=== PATIENT | female | born 1995 | race Caucasian/White ===

== ENCOUNTER → 2018-08-18 | Outpatient (CLI) | payer BC, OTHER ==
[2018-08-17 11:00] VITALS: BP 109/56
[~2018-08-18] MED LIST: DOCU-109 PO; HYDROCODONE-IB1 EAC3 PO; PANT20TA2 PO
[2018-08-18 16:24] LABS: BASO # 0.2 x10^3/uL (0.0-0.2); BASO % 1 % (0-3); EOS # 0.6 x10^3/uL (0.0-0.7); EOS % 3 % (0-3); HEMATOCRIT 35.3 % (36.0-47.0); HEMOGLOBIN 11.7 g/dL (12.0-15.5); LYMPH # 2.1 x10^3/uL (1.0-4.8); LYMPH % 10 % (24-48); MEAN CORPUSCULAR HEMOGLOBIN 28 pg (25-35); MEAN CORPUSCULAR HGB CONC 33 g/dL (31-37); MEAN CORPUSCULAR VOLUME 84 fL (79-100); MONO # 2.5 x10^3/uL (0.0-1.1); MONO % 12 % (0-9); NEUT % 74 % (31-73); RED BLOOD COUNT 4.22 x10^6/uL (3.50-5.40); RED CELL DISTRIBUTION WIDTH 15.3 % (11.5-14.5); WHITE BLOOD COUNT 20.5 x10^3/uL (4.0-11.0)
[2018-08-18 16:31] LABS: PLATELET COUNT 1265 x10^3/uL (140-400)
[2018-08-18 17:12] LABS: % EOS 1 % (0-5); % LYMPHS 6 % (24-48); % MONOS 10 % (0-10); % SEGS 83 % (35-66); PLT ESTIMATE INCREASED (ADEQUATE)
[2018-08-18 17:13] LABS: PLATELET CLUMP PRESENT; TOXIC GRANULATION SLIGHT
== END | disposition home or self-care (01) ==
LOC: LAB 16:06
PROVIDERS: ATTEND Family Medicine
DX: D47.3 Essential (hemorrhagic) thrombocythemia (principal)
CPT/HCPCS: 36415; 85007; 85025

== ENCOUNTER 2019-05-26 19:44 | Emergency (ER) | payer BC ==
[~2019-05-26] VITALS: Ht 175.3 cm; Wt 68.0 kg
[2019-05-26 20:10] LABS: BASO # 0.1 x10^3/uL (0.0-0.2); BASO % 1 % (0-3); EOS # 0.2 x10^3/uL (0.0-0.7); EOS % 2 % (0-3); LYMPH # 4.6 x10^3/uL (1.0-4.8); LYMPH % 33 % (24-48); MEAN CORPUSCULAR HEMOGLOBIN 29 pg (25-35); MEAN CORPUSCULAR HGB CONC 33 g/dL (31-37); MEAN CORPUSCULAR VOLUME 89 fL (79-100); MONO % 7 % (0-9); NEUT # 7.8 x10^3/uL (1.8-7.7); NEUT % 57 % (31-73); PLATELET COUNT 421 x10^3/uL (140-400); RED BLOOD COUNT 4.49 x10^6/uL (3.50-5.40); RED CELL DISTRIBUTION WIDTH 13.9 % (11.5-14.5); WHITE BLOOD COUNT 13.9 x10^3/uL (4.0-11.0)
[2019-05-26 20:20] LABS: CREATININE 0.8 mg/dL (0.6-1.0); GFR 87.4; POTASSIUM 3.3 mmol/L (3.5-5.1)
[2019-05-26 20:25] LABS: ALBUMIN 3.6 g/dL (3.4-5.0); TOTAL BILIRUBIN 0.3 mg/dL (0.2-1.0); TOTAL PROTEIN 7.2 g/dL (6.4-8.2)
[2019-05-26] MEDS ORDERED: DEXAMETHASONE SOD PHOS 20 MG/5 ML VIAL. IV ONE (20:30)
[2019-05-26] MEDS ORDERED: KETOROLAC 30 MG/ML VIAL. IVP ONE (20:30)
[2019-05-26] MEDS ORDERED: IV NORMAL SALINE 1000ML BAG 1,000 ML IV SCH (20:30)
[2019-05-26 21:18] LABS: BILIRUBIN,URINE SMALL (NEG); CLARITY,URINE CLEAR; COLOR,URINE AMBER; NITRITE,URINE NEGATIVE (NEG); PH,URINE 5.5; PROTEIN,URINE NEGATIVE (NEG-TRACE)
[2019-05-26 21:22] LABS: BACTERIA,URINE FEW /HPF (0-FEW); SQUAMOUS EPITHELIAL CELL,UR MOD /LPF
[2019-05-26 21:23] LABS: RBC,URINE RARE /HPF (0-2)
[2019-05-26] MEDS ORDERED: TRAM50TA PO (21:45)
--- NOTE | 2019-05-26 21:45 | PHYS DOC ---
Past Medical History Past Medical History: Asthma Additional Past Medical Histor: GASTRIC BYPASS Past Surgical History: Cholecystectomy Additional Past Surgical Histo: gastric bypass Alcohol Use: None Drug Use: None Adult General Chief Complaint Chief Complaint: CHEST PAIN HPI HPI Patient is a 23-year-old female who presents with complaint of left-sided chest pain that started 4-5 days ago. Patient states the pain is sharp and stabbing in nature and states the pain is worsened with deep breathing and with movements. She states that she was seen by her primary care provider earlier this week for the same complaint and he did blood work and chest x-ray along with EKG and found nothing wrong. She states the pain is continuing and is actually worsening. She does indicate that she had one episode of nausea earlier in the day but states that she was unable to vomit. She attributes the nausea to history of gastric bypass.[] Review of Systems Review of Systems Constitutional: Denies fever or chills [] Respiratory: Denies cough or shortness of breath [] Cardiovascular: No additional information not addressed in HPI [] GI: Denies abdominal pain, vomiting or diarrhea [] Musculoskeletal: Admits to mid thoracic back pain [] Integument: Denies rash or skin lesions [] Neurologic: Denies headache, focal weakness or sensory changes [] All other systems were reviewed and found to be within normal limits, except as documented in this note. Current Medications Current Medications Current Medications Medications (Trade) Dose Ordered Sig/[facility] Start Time Stop Time Status Last Admin Dose Admin Dexamethasone Sodium Phosphate (Decadron) 10 mg 1X ONCE 05/26/19 20:30 05/26/19 20:31 DC 05/26/19 20:25 10 MG Ketorolac Tromethamine (Toradol 30mg Vial) 30 mg 1X ONCE 05/26/19 20:30 05/26/19 20:31 DC 05/26/19 20:24 30 MG Sodium Chloride 1,000 ml @ 1,000 mls/hr Q1H 05/26/19 20:30 05/26/19 21:29 DC 05/26/19 20:24 1,000 MLS/HR Allergies Allergies Allergies Coded Allergies Type Severity Reaction Last Updated Verified Penicillins Allergy Severe FACIAL SWELLING, ANGIOEDEMA 08/06/18 Yes Sulfa (Sulfonamide Antibiotics) Allergy Intermediate 08/05/18 Yes acetaminophen Allergy Intermediate 08/05/18 Yes oxycodone Allergy Intermediate 08/05/18 Yes adhesive Adverse Reaction Mild Rash, itching 08/16/18 Yes hydromorphone Adverse Reaction Mild 05/26/19 Yes Physical Exam Physical Exam Constitutional: Well developed, well nourished, no acute distress, non-toxic appearance. [] HENT: Normocephalic, atraumatic, bilateral external ears normal, oropharynx m oist, no oral exudates, nose normal. [] Eyes: PERRLA, EOMI, conjunctiva normal, no discharge. [] Neck: Normal range of motion, no tenderness, supple, no stridor. [] Cardiovascular: Regular rate and rhythm[] Lungs & Thorax: Bilateral breath sounds clear to auscultation [] Abdomen: Bowel sounds normal, soft, no tenderness. [] Skin: Warm, dry, no erythema, no rash. [] Extremities: No tenderness, no cyanosis, no clubbing, ROM intact, no edema. [] Neurologic: Alert and oriented X 3, no focal deficits noted. [] Current Patient Data Vital Signs Vital Signs Date Time Temp Pulse Resp B/P (MAP) Pulse Ox O2 Delivery O2 Flow Rate FiO2 05/26/19 21:52 76 14 104/62 (76) 99 05/26/19 19:56 98.1 Room Air 98.1 Lab Values Laboratory Tests Test 05/26/19 20:00 05/26/19 21:10 White Blood Count 13.9 x10^3/uL (4.0-11.0) H Red Blood Count 4.49 x10^6/uL (3.50-5.40) Hemoglobin 13.0 g/dL (12.0-15.5) Hematocrit 40.0 % (36.0-47.0) Mean Corpuscular Volume 89 fL (79-100) Mean Corpuscular Hemoglobin 29 pg (25-35) Mean Corpuscular Hemoglobin Concent 33 g/dL (31-37) Red Cell Distribution Width 13.9 % (11.5-14.5) Platelet Count 421 x10^3/uL (140-400) H Neutrophils (%) (Auto) 57 % (31-73) Lymphocytes (%) (Auto) 33 % (24-48) Monocytes (%) (Auto) 7 % (0-9) Eosinophils (%) (Auto) 2 % (0-3) Basophils (%) (Auto) 1 % (0-3) Neutrophils # (Auto) 7.8 x10^3/uL (1.8-7.7) H Lymphocytes # (Auto) 4.6 x10^3/uL (1.0-4.8) Monocytes # (Auto) 1.0 x10^3/uL (0.0-1.1) Eosinophils # (Auto) 0.2 x10^3/uL (0.0-0.7) Basophils # (Auto) 0.1 x10^3/uL (0.0-0.2) Sodium Level 142 mmol/L (136-145) Potassium Level 3.3 mmol/L (3.5-5.1) L Chloride Level 102 mmol/L (98-107) Carbon Dioxide Level 30 mmol/L (21-32) Anion Gap 10 (6-14) Blood Urea Nitrogen 15 mg/dL (7-20) Creatinine 0.8 mg/dL (0.6-1.0) Estimated GFR (Cockcroft-Gault) 87.4 BUN/Creatinine Ratio 19 (6-20) Glucose Level 92 mg/dL (70-99) Calcium Level 9.0 mg/dL (8.5-10.1) Magnesium Level 2.0 mg/dL (1.8-2.4) Total Bilirubin 0.3 mg/dL (0.2-1.0) Aspartate Amino Transferase (AST) 11 U/L (15-37) L Alanine Aminotransferase (ALT) 12 U/L (14-59) L Alkaline Phosphatase 85 U/L (46-116) Troponin I Quantitative < 0.017 ng/mL (0.000-0.055) AH-Zfz-P-Type Natriuretic Peptide 74 pg/mL (0-124) Total Protein 7.2 g/dL (6.4-8.2) Albumin 3.6 g/dL (3.4-5.0) Albumin/Globulin Ratio 1.0 (1.0-1.7) Urine Collection Type Unknown Urine Color Sandra Urine Clarity Clear Urine pH 5.5 Urine Specific [place] >=1.030 Urine Protein Negative mg/dL (NEG-TRACE) Urine Glucose (UA) Negative mg/dL (NEG) Urine Ketones (Stick) Trace mg/dL (NEG) Urine Blood Negative (NEG) Urine Nitrite Negative (NEG) Urine Bilirubin Small (NEG) Urine Urobilinogen Dipstick 1.0 mg/dL (0.2 mg/dL) Urine Leukocyte Esterase Negative (NEG) Urine RBC Rare /HPF (0-2) Urine WBC 5-10 /HPF (0-4) Urine Squamous Epithelial Cells Mod /LPF Urine Bacteria Few /HPF (0-FEW) Urine Mucus Marked /LPF POC Urine HCG, Qualitative Hcg negative (Negative) Laboratory Tests 05/26/19 20:00 Laboratory Tests 05/26/19 20:00 EKG EKG EKG demonstrates sinus rhythm with rate of 58.[] Radiology/Procedures Radiology/Procedures [] Impressions: Chest x-ray demonstrates no acute process. Course & Med Decision Making Course & Med Decision Making Pertinent Labs and Imaging studies reviewed. (See chart for details) [] Dragon Disclaimer Dragon Disclaimer This electronic medical record was generated, in whole or in part, using a voice recognition dictation system. Departure Departure Impression: Primary Impression: Costochondritis Disposition: 01 HOME, SELF-CARE Condition: STABLE Referrals: NO PCP (PCP) Patient Instructions: Costochondritis Scripts Tramadol Hcl (TRAMADOL HCL) 50 Mg Tablet 50 MG PO Q6HRS PRN for PAIN, #15 TAB Prov: CORTEZ HOBSON Jr. DO 05/26/19 CORTEZ HOBSON Jr. DO May 26, 2019 21:45
[2019-05-26 21:52] VITALS: BP 104/62
--- NOTE | 2019-05-26 22:51 | RAD ---
EXAM: AP View of the chest DATE: 05/26/2019 7:59 PM INDICATION: Chest wall pain COMPARISON: 08/15/2018 FINDINGS: The heart is not enlarged. Mediastinal and hilar contours are normal. No focal parenchymal airspace opacity. No pleural effusion or pneumothorax. IMPRESSION: 1. No radiographic evidence for acute cardiopulmonary process. Electronically signed by: Curly Sorto MD (05/26/2019 10:48 PM) [id number]
--- NOTE | 2019-05-27 14:32 | EKG ---
[facility] [address] [place] [address] Test Date: 2019-05-26 Test Time: 19:51:38 Pat Name: OLAF MUNOZ Department: Room: Gender: F [employer]: : 1995 Requested By: CORTEZ HOBSON Order Number: [id number] Reading MD: Measurements Intervals [place] Rate: 58 P: 32 [place]: 156 QRS: 46 QRSD: 88 T: 71 QT: 370 QTc: 363 Interpretive Statements SINUS RHYTHM INCOMPLETE RIGHT BUNDLE BRANCH BLOCK NO SPECIFIC ECG ABNORMALITIES RI6.01 No previous ECG available for comparison
== END 2019-05-26 22:20 | disposition home or self-care (01) ==
LOC: ER 19:44
DX: M94.0 Chondrocostal junction syndrome [Tietze] (principal); J45.909 Unspecified asthma, uncomplicated; M54.6 Pain in thoracic spine; Z98.84 Bariatric surgery status; Z90.49 Acquired absence of other specified parts of digestive tract; Z88.0 Allergy status to penicillin; Z88.2 Allergy status to sulfonamides; Z88.5 Allergy status to narcotic agent; Z88.6 Allergy status to analgesic agent; Z88.8 Allergy status to other drugs, medicaments and biological substances
CPT/HCPCS: 36415; 71045; 80053; 81001; 81025; 83735; 83880; 84484; 85025; 87086; 93005; 96374; 96375; 99285; J1100; J1885; J7030

== ENCOUNTER 2019-08-26 20:34 | Emergency (ER) | payer BC ==
[~2019-08-26] VITALS: Ht 175.3 cm; Wt 146.0 kg
[~2019-08-26 20:34] MED LIST changes: +TRAM50TA PO
[2019-08-26 21:32] LABS: BILIRUBIN,URINE SMALL (NEG); CLARITY,URINE CLEAR; NITRITE,URINE NEGATIVE (NEG); PROTEIN,URINE NEGATIVE (NEG-TRACE)
[2019-08-26 21:39] LABS: COLOR,URINE DK YELLOW
[2019-08-26 21:41] LABS: BACTERIA,URINE MANY /HPF (0-FEW); RBC,URINE 0 /HPF (0-2); SQUAMOUS EPITHELIAL CELL,UR MANY /LPF
[2019-08-26] MEDS ORDERED: IV NORMAL SALINE 1000ML BAG 1,000 ML IV ONE (21:45)
[2019-08-26 21:53] LABS: BASO # 0.1 x10^3/uL (0.0-0.2); BASO % 1 % (0-3); EOS # 0.1 x10^3/uL (0.0-0.7); EOS % 0 % (0-3); HEMATOCRIT 40.7 % (36.0-47.0); HEMOGLOBIN 13.3 g/dL (12.0-15.5); LYMPH # 3.3 x10^3/uL (1.0-4.8); LYMPH % 20 % (24-48); MEAN CORPUSCULAR HEMOGLOBIN 29 pg (25-35); MEAN CORPUSCULAR HGB CONC 33 g/dL (31-37); MEAN CORPUSCULAR VOLUME 89 fL (79-100); MONO # 0.8 x10^3/uL (0.0-1.1); MONO % 5 % (0-9); NEUT # 11.8 x10^3/uL (1.8-7.7); NEUT % 74 % (31-73); PLATELET COUNT 512 x10^3/uL (140-400); RED BLOOD COUNT 4.56 x10^6/uL (3.50-5.40); RED CELL DISTRIBUTION WIDTH 14.2 % (11.5-14.5)
[2019-08-26] MEDS ORDERED: FAMOTIDINE 20 MG/2 ML VIAL IVP ONE (22:00)
[2019-08-26] MEDS ORDERED: ONDANSETRON PF 4 MG/2 ML VIAL. IV ONE (22:00)
[2019-08-26 22:04] LABS: CALCIUM 9.4 mg/dL (8.5-10.1); CREATININE 0.8 mg/dL (0.6-1.0); GFR 86.7; POTASSIUM 3.6 mmol/L (3.5-5.1)
[2019-08-26 22:10] LABS: ALBUMIN 4.1 g/dL (3.4-5.0); ALBUMIN/GLOBULIN RATIO 1.1 (1.0-1.7); TOTAL BILIRUBIN 0.5 mg/dL (0.2-1.0); TOTAL PROTEIN 7.8 g/dL (6.4-8.2)
[2019-08-26] MEDS ORDERED: fentaNYL PF VIAL 100 MCG/2 ML VIAL IV ONE (22:30)
[2019-08-26] MEDS ORDERED: CONTRAST GIVEN. MC PRN (23:00)
[2019-08-26] MEDS ORDERED: IOHEXOL 300 MG/ML 100ML VIAL. IV ONE (23:00)
--- NOTE | 2019-08-26 23:26 | RAD ---
Exam: CT abdomen and pelvis with contrast INDICATION: Left upper abdominal pain TECHNIQUE: Sequential axial images through the abdomen and pelvis obtained following the administration of 75 mL of Omni 300 IV contrast. Sagittal and coronal reformatted images were reconstructed from the axial data and reviewed. Comparisons: None FINDINGS: Heart size is normal. No pericardial effusion. Visualized lung bases are clear. No pleural effusion. Liver,, pancreas and adrenals are unremarkable. Spleen and gallbladder are absent. Kidneys demonstrate symmetric enhancement. No perinephric inflammation or hydronephrosis. No renal or ureteral calculi are identified. Bladder is decompressed not well evaluated. Uterus is not enlarged. There is a 4.3 cm cystic lesion at the left adnexa. Trace free fluid. Large and small bowel are unremarkable. Postsurgical changes at the stomach are noted. No free intra-abdominal air. Abdominal aorta has a normal course and caliber. Abdominal vasculature is patent. No enlarged intra-abdominal lymph nodes are identified. No suspicious osseous lesions or acute fractures. IMPRESSION: 1. There is a 4.4 cm cystic lesion at the left adnexa, likely ovarian in etiology. This is incompletely characterized on CT. 2. Postsurgical changes at the stomach. 3. Trace free fluid is noted within the pelvis, which is nonspecific and may be physiological. Exposure: One or more of the following in the visualized dose reduction techniques were utilized for this examination: 1. Automated exposure control 2. Adjustment of the MA and/or KV according to patient size 3. Use of iterative of reconstructive technique Electronically signed by: Soo Antonio MD (08/26/2019 11:22 PM) [id number]
--- NOTE | 2019-08-26 23:29 | PHYS DOC ---
Past Medical History Past Medical History: Asthma Additional Past Medical Histor: GASTRIC BYPASS (ABDIRAHMAN CHO APRN) Past Surgical History: Cholecystectomy, Colectomy, Splenectomy Additional Past Surgical Histo: gastric bypass (ABDIRAHMAN CHO APRN) Smoking Status: Light Tobacco Smoker Alcohol Use: None Drug Use: None (ABDIRAHMAN CHO APRN) Attending Signature I have participated in the care of this patient and I have reviewed and agree with all pertinent clinical information above including history, exam, and recommendations. (LUTHER HARO MD) Adult General Chief Complaint Chief Complaint: ABDOMINAL PAIN HPI HPI Patient is a 24 year old female who presents to the emergency department with complaints of nausea, vomiting, and body aches that began today. Patient states she has vomited at least 8 or 9 times today she denies any diarrhea, fever, dysuria, hematuria, increased urinary frequency, cough, nasal congestion, runny nose, sore throat, headache, dizziness, or weakness. Patient denies any hematemesis. She complains of left upper abdominal pain. Patient states that the pain in her abdomen started about 2 weeks ago and has gradually gotten worse. She reports concern because of multiple abdominal surgeries including a gastric bypass, splenectomy, and cholecystectomy. She currently rates her discomfort a 5 out of 10 on the pain scale, she denies any alleviating factors. (ABDIRAHMAN CHO APRN) Review of Systems Review of Systems All other ROS is negative unless otherwise noted in HPI. (ABDIRAHMAN CHO APRN) Current Medications Current Medications Current Medications Medications (Trade) Dose Ordered Sig/René Start Time Stop Time Status Last Admin Dose Admin Famotidine (Pepcid Vial) 20 mg 1X ONCE 08/26/19 22:00 08/26/19 22:01 DC 08/26/19 22:01 20 MG Fentanyl Citrate (Fentanyl 2ml Vial) 50 mcg 1X ONCE 08/26/19 22:30 08/26/19 22:31 DC 08/26/19 22:27 50 MCG Info (CONTRAST GIVEN -- Rx MONITORING) 1 each PRN DAILY PRN 08/26/19 23:00 08/27/19 01:14 DC Iohexol (Omnipaque 300 Mg/ml) 75 ml 1X ONCE 08/26/19 23:00 08/26/19 23:01 DC 08/26/19 23:14 75 ML Ondansetron HCl (Zofran) 4 mg 1X ONCE 08/26/19 22:00 08/26/19 22:01 DC 08/26/19 22:01 4 MG Sodium Chloride 1,000 ml @ 1,000 mls/hr 1X ONCE 08/26/19 21:45 08/26/19 22:44 DC 08/26/19 22:00 1,000 MLS/HR (LUTHER HARO MD) Allergies Allergies Allergies Coded Allergies Type Severity Reaction Last Updated Verified Penicillins Allergy Severe FACIAL SWELLING, ANGIOEDEMA 08/06/18 Yes Sulfa (Sulfonamide Antibiotics) Allergy Intermediate 08/05/18 Yes acetaminophen Allergy Intermediate 08/05/18 Yes oxycodone Allergy Intermediate 08/05/18 Yes adhesive Adverse Reaction Mild Rash, itching 08/16/18 Yes hydromorphone Adverse Reaction Mild 05/26/19 Yes (LUTHER HARO MD) Physical Exam Physical Exam See Above Constitutional: Well developed, well nourished, no acute distress, non-toxic appearance. [] HENT: Normocephalic, atraumatic, bilateral external ears normal, oropharynx moist, no oral exudates, nose normal. [] Eyes: PERRLA, EOMI, conjunctiva normal, no discharge. [] Neck: Normal range of motion, no stridor. [] Cardiovascular:Heart rate regular rhythm, no murmur [] Lungs & Thorax: Bilateral breath sounds clear to auscultation, Respirations even and unlabored, no retractions, no respiratory distress [] Abdomen: Bowel sounds normal, soft, LUQ and epigastric TTP, no rebound tenderness, no masses, no pulsatile masses; multiple abdominal surgical scars. [] Skin: Warm, dry, no erythema, no rash. [] Back: No CVA tenderness. [] Extremities: No cyanosis, ROM intact, no edema. [] Neurologic: Alert and oriented X 3, no focal deficits noted. [] Psychologic: Affect normal, judgement normal, mood normal. [] (ABDIRAHMAN CHO APRN) Current Patient Data Vital Signs Vital Signs Date Time Temp Pulse Resp B/P (MAP) Pulse Ox O2 Delivery O2 Flow Rate FiO2 08/27/19 00:50 66 17 90/54 (66) 97 Room Air 08/26/19 21:07 97.6 97.6 (LUTHER HARO MD) Lab Values Laboratory Tests Test 08/26/19 20:36 08/26/19 20:55 08/26/19 21:07 Urine Collection Type Void Urine Color Dk yellow Urine Clarity Clear Urine pH 5.0 Urine Specific [place] >=1.030 Urine Protein Negative mg/dL (NEG-TRACE) Urine Glucose (UA) Negative mg/dL (NEG) Urine Ketones (Stick) Trace mg/dL (NEG) Urine Blood Negative (NEG) Urine Nitrite Negative (NEG) Urine Bilirubin Small (NEG) Urine Urobilinogen Dipstick 1.0 mg/dL (0.2 mg/dL) Urine Leukocyte Esterase Negative (NEG) Urine RBC 0 /HPF (0-2) Urine WBC 1-4 /HPF (0-4) Urine Squamous Epithelial Cells Many /LPF Urine Bacteria Many /HPF (0-FEW) Urine Mucus Marked /LPF White Blood Count 16.0 x10^3/uL (4.0-11.0) H Red Blood Count 4.56 x10^6/uL (3.50-5.40) Hemoglobin 13.3 g/dL (12.0-15.5) Hematocrit 40.7 % (36.0-47.0) Mean Corpuscular Volume 89 fL (79-100) Mean Corpuscular Hemoglobin 29 pg (25-35) Mean Corpuscular Hemoglobin Concent 33 g/dL (31-37) Red Cell Distribution Width 14.2 % (11.5-14.5) Platelet Count 512 x10^3/uL (140-400) H Neutrophils (%) (Auto) 74 % (31-73) H Lymphocytes (%) (Auto) 20 % (24-48) L Monocytes (%) (Auto) 5 % (0-9) Eosinophils (%) (Auto) 0 % (0-3) Basophils (%) (Auto) 1 % (0-3) Neutrophils # (Auto) 11.8 x10^3/uL (1.8-7.7) H Lymphocytes # (Auto) 3.3 x10^3/uL (1.0-4.8) Monocytes # (Auto) 0.8 x10^3/uL (0.0-1.1) Eosinophils # (Auto) 0.1 x10^3/uL (0.0-0.7) Basophils # (Auto) 0.1 x10^3/uL (0.0-0.2) Sodium Level 142 mmol/L (136-145) Potassium Level 3.6 mmol/L (3.5-5.1) Chloride Level 104 mmol/L (98-107) Carbon Dioxide Level 27 mmol/L (21-32) Anion Gap 11 (6-14) Blood Urea Nitrogen 15 mg/dL (7-20) Creatinine 0.8 mg/dL (0.6-1.0) Estimated GFR (Cockcroft-Gault) 86.7 BUN/Creatinine Ratio 19 (6-20) Glucose Level 94 mg/dL (70-99) Calcium Level 9.4 mg/dL (8.5-10.1) Total Bilirubin 0.5 mg/dL (0.2-1.0) Aspartate Amino Transferase (AST) 25 U/L (15-37) Alanine Aminotransferase (ALT) 20 U/L (14-59) Alkaline Phosphatase 92 U/L (46-116) Total Protein 7.8 g/dL (6.4-8.2) Albumin 4.1 g/dL (3.4-5.0) Albumin/Globulin Ratio 1.1 (1.0-1.7) Lipase 71 U/L (73-393) L POC Urine HCG, Qualitative Hcg negative (Negative) Laboratory Tests 08/26/19 20:55 Laboratory Tests 08/26/19 20:55 (LUTHER HARO MD) EKG EKG [] (ABDIRAHMAN CHO APRN) Radiology/Procedures Radiology/Procedures PROCEDURE: CT HEAD AND CERVICAL SPINE WO Exam: CT head and cervical spine without contrast INDICATION: Facial laceration TECHNIQUE: Sequential axial images through the head and cervical spine were obtained without the administration of IV contrast. Comparisons: None FINDINGS: Head: No focal parenchymal lesion or hemorrhage is identified. There is no midline shift or sulcal effacement. No acute vascular territory infarction is identified. Moseley-white distinction is preserved. The ventricular system is within normal limits without compression hydrocephalus. The basal cisterns are well maintained. The visualized portions of the paranasal sinuses and mastoid air cells are well-pneumatized. No acute fractures. Cervical spine: Anterior cervical fusion hardware is noted from C4 to C6 with bilateral interbody screws and interconnecting vertical stabilization plate. Fracture to the cervical spine is not identified. Mild multilevel degenerative change noted throughout the cervical spine. Visualized paraspinal soft tissues IMPRESSION: 1. No acute intracranial abnormality. 2. Negative CT C-spine for acute traumatic injury. [] (ABDIRAHMAN CHO APRN) Course & Med Decision Making Course & Med Decision Making Pertinent Labs and Imaging studies reviewed. (See chart for details) PT is a 24 y/o female who presents to the ER with complaints of left upper abd pain x2 weeks and N/V today. CBC revealed WBC 16 otherwise unremarkable; CMP WNL, UA likely contaminated CT abd revealed no acute findings. PT was given 4 mg of zofran, 20 of pepcid, 1L NS, and 50 mcf of fentanyl in the ER. She reported feeling better after these medications. Prescription written for zofran, recommend clear fluids x24 hours then advance as tolerated. Follow up with PCP this week, return to ER if sx worsen. Advised pt that pain may be due to adhesions from previous surgery, but CT revealed no acute problems. PT verbalized an understanding of home care, medications, follow-up, and return to ED instructions and was in agreement with the plan of care. [] (ABDIRAHMAN CHO APRN) Dragon Disclaimer Dragon Disclaimer This electronic medical record was generated, in whole or in part, using a voice recognition dictation system. (ABDIRAHMAN CHO APRN) Departure Departure Impression: Primary Impression: Nausea & vomiting Additional Impression: Abdominal pain, left upper quadrant Disposition: 01 HOME, SELF-CARE Condition: STABLE Referrals: NO PCP (PCP) Patient Instructions: Abdominal Pain (Nonspecific), Nausea and Vomiting, [id number] Additional Instructions: Fill prescriptions and use them as directed. Recommend clear fluids for the next 24 hours. Then you may advance to bland foods such as bananas, rice, applesauce, and dry toast. Follow-up with your primary care doctor in the next 1-2 days. Return to the emergency room if your symptoms worsen. Scripts Ondansetron Hcl (ONDANSETRON HCL) 4 Mg Tablet 1 TAB PO PRN Q6HRS PRN for NAUSEA/VOMITING for 3 Days, #10 TAB 0 Refills Prov: ABDIRAHMAN CHO APRN 08/27/19 Problem Qualifiers Primary Impression: Nausea & vomiting Vomiting type: unspecified Vomiting Intractability: non-intractable Qualified Codes: R11.2 - Nausea with vomiting, unspecified ABDIRAHMAN CHO APRN Aug 26, 2019 23:29 LUTHER HARO MD Aug 27, 2019 05:27
[2019-08-27] MEDS ORDERED: ONDA-84 PO (00:25)
[2019-08-27 00:50] VITALS: BP 90/54
== END 2019-08-27 01:10 | disposition home or self-care (01) ==
LOC: ER 20:34
DX: R11.2 Nausea with vomiting, unspecified (principal); R10.12 Left upper quadrant pain; R10.13 Epigastric pain; J45.909 Unspecified asthma, uncomplicated; Z90.49 Acquired absence of other specified parts of digestive tract; Z90.89 Acquired absence of other organs; F17.200 Nicotine dependence, unspecified, uncomplicated; Z88.0 Allergy status to penicillin; Z88.5 Allergy status to narcotic agent; Z88.2 Allergy status to sulfonamides; Z88.4 Allergy status to anesthetic agent
CPT/HCPCS: 36415; 74177; 80053; 81001; 81025; 83690; 85025; 87086; 96361; 96374; 96375; 99285; J2405; J3010; J3490; J7030; Q9967

== ENCOUNTER 2020-01-23 16:00 | Emergency (ER) | payer BC ==
[~2020-01-23] VITALS: Ht 175.3 cm; Wt 69.9 kg
[~2020-01-23 16:00] MED LIST changes: +ONDA-84 PO
[2020-01-23] MEDS ORDERED: IV NORMAL SALINE 1000ML BAG 1,000 ML IV ONE ×2 (17:00→18:30)
[2020-01-23] MEDS ORDERED: ONDANSETRON PF 4 MG/2 ML VIAL. IV ONE ×2 (17:00→18:30)
--- NOTE | 2020-01-23 17:40 | PHYS DOC ---
Past Medical History Past Medical History: Asthma, Depression Additional Past Medical Histor: GASTRIC BYPASS Past Surgical History: Cholecystectomy, Colectomy, Splenectomy Additional Past Surgical Histo: gastric bypass Smoking Status: Light Tobacco Smoker Alcohol Use: None Drug Use: None General Adult EDM: Chief Complaint: ABDOMINAL PAIN HPI: HPI: Patient is a 24 year old female who presents with upper abdominal pain that started yesterday morning. Patient reports that the pain initially started in her left upper quadrant but now has moved to her right upper quadrant and radiates through to her back, patient reports that at times the pain in her upper abdomen radiates to her lower chest. Patient describes the pain as a sharp pain, she rates a 7 out of 10, no alleviating or aggravating factors. Patient is reporting nausea and vomiting, she vomited twice today. Patient contacted her primary care provider who informed her to go to the emergency department due to her history of a splenectomy and bowel reconstruction that she had in July 2019. Review of Systems: Review of Systems: Constitutional: Denies fever or chills. [] Eyes: Denies change in visual acuity. [] HENT: Denies nasal congestion or sore throat. [] Respiratory: Denies cough or shortness of breath. [] Cardiovascular: See history of present illness. [] GI: See HPI [] : Denies dysuria. [] Musculoskeletal: Denies back pain or joint pain. [] Integument: Denies rash. [] Neurologic: Denies headache, focal weakness or sensory changes. [] Psychiatric: Denies depression or anxiety. [] Heart Score: Risk Factors: Risk Factors: DM, Current or recent (<one month) smoker, HTN, HLP, family history of CAD, obesity. Risk Scores: Score 0 - 3: 2.5% MACE over next 6 weeks - Discharge Home Score 4 - 6: 20.3% MACE over next 6 weeks - Admit for Clinical Observation Score 7 - 10: 72.7% MACE over next 6 weeks - Early Invasive Strategies Current Medications: Current Medications Medications (Trade) Dose Ordered Sig/René Start Time Stop Time Status Last Admin Dose Admin Ondansetron HCl (Zofran) 4 mg 1X ONCE 01/23/20 17:00 01/23/20 17:01 DC Sodium Chloride 1,000 ml @ 1,000 mls/hr 1X ONCE 01/23/20 17:00 01/23/20 17:59 Allergies: Allergies: Allergies Coded Allergies Type Severity Reaction Last Updated Verified Penicillins Allergy Severe FACIAL SWELLING, ANGIOEDEMA 08/06/18 Yes Sulfa (Sulfonamide Antibiotics) Allergy Intermediate 08/05/18 Yes acetaminophen Allergy Intermediate 08/05/18 Yes oxycodone Allergy Intermediate 08/05/18 Yes adhesive Adverse Reaction Mild Rash, itching 08/16/18 Yes hydromorphone Adverse Reaction Mild 05/26/19 Yes Physical Exam: PE: Constitutional: Well developed, well nourished, no acute distress, non-toxic appearance. [] HENT: Normocephalic, atraumatic, bilateral external ears normal, oropharynx moist, nose normal. [] Eyes: PERRLA, EOMI, conjunctiva normal, no discharge. [] Neck: Normal range of motion, no stridor. [] Cardiovascular:Heart rate regular rhythm, no murmur [] Lungs & Thorax: Bilateral breath sounds clear to auscultation, Respirations even and unlabored, no retractions, no respiratory distress [] Abdomen: Bowel sounds normal, soft and flat no masses, no pulsatile masses; pain with palpation to epigastric and left upper quadrant areas, no rebound tenderness, no guarding Skin: Warm, dry, no erythema, no rash. [] Back: No tenderness. [] Extremities: No tenderness, no cyanosis, no clubbing, ROM intact, no edema. [] Neurologic: Alert and oriented X 3, normal motor function [] Psychologic: Affect normal, judgement normal, mood normal. [] Current Patient Data: Vital Signs: Vital Signs Date Time Temp Pulse Resp B/P (MAP) Pulse Ox O2 Delivery O2 Flow Rate FiO2 01/23/20 17:03 98.4 58 16 107/69 (82) 100 Room Air 98.4 EKG: EKG: [] Radiology/Procedures: Radiology/Procedures: PROCEDURE: CT ABD PELV W/ IV CONTRST ONLY CT abdomen and pelvis with contrast History: Left upper quadrant and epigastric pain Technique: After the administration of intravenous contrast, CT imaging was performed of the abdomen and pelvis. No oral contrast was given. Multiplanar images are reviewed. Exposure: One or more of the following individualized dose reduction techniques were utilized for this examination: 1. Automated exposure control 2. Adjustment of the mA and/or kV according to patient size 3. Use of iterative reconstruction technique. Comparison: August 26, 2019 Findings: There is no significant abnormality of the visualized lung bases. There is no new significant abnormality of the liver, pancreas, adrenal glands. 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 Both kidneys enhance without hydronephrosis. There again has been cholecystectomy. There are again postsurgical changes of the stomach. Accurate evaluation of bowel is limited without oral contrast and also due to the paucity of intra-abdominal and intrapelvic fat. There is variable retained stool greater of the right colon. At least a segment of normal caliber appendix is believed to be visualized. There is some fluid in the bowel at site of bowel anastomotic site in the left abdomen, otherwise bowel not considered significantly dilated. No free air is identified. There is appearance of degree of gastric wall prominence although similar. There is again mild dependent free fluid in the pelvis. There is some increased hypodensity of the right adnexa probably underlying adnexal cyst at least 1.7 cm although poorly delineated on this exam, density measurements somewhat greater than simple cyst about 21 Hounsfield units. Previously there was a larger hypodense lesion of the left adnexa which has decreased. There is again IUD in the uterus. Impression: 1. There is again minimal nonspecific free fluid in the pelvis, now focus of hypodensity of the right adnexa which may be adnexal cyst, previously seen left adnexal cyst decreased. 2. There is similar degree of nonspecific prominence of the gastric corea, again postsurgical changes of stomach. There is nonspecific fluid believed to be in the lumen at site of bowel anastomotic site in the left abdomen.[] Course & Med Decision Making: Course & Med Decision Making Pertinent Labs and Imaging studies reviewed. (See chart for details) Patient is a 24-year-old female coming in for left upper quadrant pain that radiates to her back. Patient has history of a splenectomy and bowel resection. Included CBC, lipase, magnesium, UA, test, CT abdomen with IV contrast. CBC showed a low white blood cell count of 12.2, CMP unremarkable; UA unremarkable. CT abdomen showed nonspecific free fluid in the pelvis and a possible right a dnexa cyst and nonspecific prominence of the gastric corea with nonspecific fluid believed to be in the lumen at the site of the bowel anastomotic site in the left abdomen. Patient was treated with 1 L of normal saline, 4 mg of Zofran, patient continued to report nausea and requested pain medication so an additional 4 mg of Zofran and 50mcg of fentanyl ordered, GI cocktail ordered for patient. Patient reported resolution of the epigastric abdominal pain after the GI cocktail, she continued to report left upper quadrant pain but stated it was improved after interventions. Will prescribe Zofran as needed nausea, recommended clear li quids for 24 hours and then advance diet as tolerated starting with the brat diet. Encouraged the patient to follow-up with her surgeon about reoccurring left upper quadrant abdominal pain after splenectomy. Patient verbalized an understanding of home care, medications, follow-up, and return to ED instructions and was in agreement with the plan of care. [] Dragon Disclaimer: Dragon Disclaimer: This electronic medical record was generated, in whole or in part, using a voice recognition dictation system. Departure Departure Impression: Primary Impression: Nausea & vomiting Qualified Codes: R11.2 - Nausea with vomiting, unspecified Additional Impressions: Gastritis Qualified Codes: K29.00 - Acute gastritis without bleeding Left upper quadrant abdominal pain Disposition: HOME, SELF-CARE Condition: STABLE Referrals: OSIRIS AARON MD (PCP) Patient Instructions: Abdominal Pain, Gastritis, Adult, [id number] Additional Instructions: Fill prescription and use them as directed. Recommend clear fluids for the next 24 hours. Then you may advance to bland foods such as bananas, rice, applesauce, and dry toast. Follow-up with Dr. Castellano for further evaluation of reoccurring left upper quadrant pain. Return to the emergency room if your symptoms worsen. Scripts Ondansetron Hcl (ONDANSETRON HCL) 4 Mg Tablet 1 TAB PO PRN Q6HRS PRN for NAUSEA/VOMITING for 3 Days, #10 TAB 0 Refills Prov: ABDIRAHMAN CHO STUDENT RECRUITER 01/23/20 Justicifation of Admission Dx: Justifications for Admission: Justification of Admission Dx: N/A ABDIRAHMAN CHO STUDENT RECRUITER Jan 23, 2020 17:40
[2020-01-23 17:42] LABS: BASO # 0.1 x10^3/uL (0.0-0.2); BASO % 1 % (0-3); EOS # 0.3 x10^3/uL (0.0-0.7); EOS % 3 % (0-3); HEMATOCRIT 35.4 % (36.0-47.0); LYMPH # 4.4 x10^3/uL (1.0-4.8); LYMPH % 36 % (24-48); MEAN CORPUSCULAR HEMOGLOBIN 30 pg (25-35); MEAN CORPUSCULAR HGB CONC 34 g/dL (31-37); MEAN CORPUSCULAR VOLUME 89 fL (79-100); MONO % 8 % (0-9); NEUT # 6.3 x10^3/uL (1.8-7.7); NEUT % 52 % (31-73); PLATELET COUNT 448 x10^3/uL (140-400); RED BLOOD COUNT 3.97 x10^6/uL (3.50-5.40); RED CELL DISTRIBUTION WIDTH 13.6 % (11.5-14.5); WHITE BLOOD COUNT 12.2 x10^3/uL (4.0-11.0)
[2020-01-23 17:44] LABS: BILIRUBIN,URINE SMALL (NEG); CLARITY,URINE CLEAR; COLOR,URINE AMBER; NITRITE,URINE NEGATIVE (NEG); PH,URINE 6.5 (<5.0-8.0); PROTEIN,URINE NEGATIVE (NEG-TRACE)
[2020-01-23 17:53] LABS: BACTERIA,URINE FEW /HPF (0-FEW); RBC,URINE 0 /HPF (0-2); SQUAMOUS EPITHELIAL CELL,UR FEW /LPF; WBC,URINE OCC /HPF (0-4)
[2020-01-23 17:54] LABS: CALCIUM 8.2 mg/dL (8.5-10.1); CREATININE 0.9 mg/dL (0.6-1.0); GFR 75.7; POTASSIUM 3.7 mmol/L (3.5-5.1)
[2020-01-23 17:57] LABS: ALBUMIN 3.4 g/dL (3.4-5.0); ALBUMIN/GLOBULIN RATIO 1.1 (1.0-1.7); MAGNESIUM 1.8 mg/dL (1.8-2.4); TOTAL BILIRUBIN 0.4 mg/dL (0.2-1.0); TOTAL PROTEIN 6.4 g/dL (6.4-8.2)
[2020-01-23] MEDS ORDERED: IOHEXOL 300 MG/ML 100ML VIAL. IV ONE (18:15)
[2020-01-23] MEDS ORDERED: fentaNYL PF VIAL 100 MCG/2 ML VIAL IV ONE (18:30)
--- NOTE | 2020-01-23 19:03 | RAD ---
CT abdomen and pelvis with contrast History: Left upper quadrant and epigastric pain Technique: After the administration of intravenous contrast, CT imaging was performed of the abdomen and pelvis. No oral contrast was given. Multiplanar images are reviewed. Exposure: One or more of the following individualized dose reduction techniques were utilized for this examination: 1. Automated exposure control 2. Adjustment of the mA and/or kV according to patient size 3. Use of iterative reconstruction technique. Comparison: August 26, 2019 Findings: There is no significant abnormality of the visualized lung bases. There is no new significant abnormality of the liver, pancreas, adrenal glands. 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 Both kidneys enhance without hydronephrosis. There again has been cholecystectomy. There are again postsurgical changes of the stomach. Accurate evaluation of bowel is limited without oral contrast and also due to the paucity of intra-abdominal and intrapelvic fat. There is variable retained stool greater of the right colon. At least a segment of normal caliber appendix is believed to be visualized. There is some fluid in the bowel at site of bowel anastomotic site in the left abdomen, otherwise bowel not considered significantly dilated. No free air is identified. There is appearance of degree of gastric wall prominence although similar. There is again mild dependent free fluid in the pelvis. There is some increased hypodensity of the right adnexa probably underlying adnexal cyst at least 1.7 cm although poorly delineated on this exam, density measurements somewhat greater than simple cyst about 21 Hounsfield units. Previously there was a larger hypodense lesion of the left adnexa which has decreased. There is again IUD in the uterus. Impression: 1. There is again minimal nonspecific free fluid in the pelvis, now focus of hypodensity of the right adnexa which may be adnexal cyst, previously seen left adnexal cyst decreased. 2. There is similar degree of nonspecific prominence of the gastric corea, again postsurgical changes of stomach. There is nonspecific fluid believed to be in the lumen at site of bowel anastomotic site in the left abdomen. Electronically signed by: Nakul Garcia MD (01/23/2020 7:00 PM) [facility]
[2020-01-23] MEDS ORDERED: LIDO:MAALOX 1:1 20 ML SINGLE DOSE. SWSW ONE (19:45)
[2020-01-23 20:19] VITALS: BP 106/62
[2020-01-23] MEDS ORDERED: ONDA-84 PO (20:35)
--- NOTE | 2020-01-24 06:10 | EKG ---
[facility] [address] [place] [address] Test Date: 2020-01-23 Test Time: 18:27:23 Pat Name: OLAF MUNOZ Department: Room: Gender: F Business Applications Manager: : 1995 Requested By: STAFF NON Order Number: [id number] Reading MD: Measurements Intervals [place] Rate: 53 P: 42 PA: 158 QRS: 59 QRSD: 94 T: 56 QT: 446 QTc: 421 Interpretive Statements SINUS RHYTHM NORMAL ECG RI6.02 No previous ECG available for comparison
== END 2020-01-23 20:54 | disposition home or self-care (01) ==
LOC: ER 16:00
DX: K29.00 Acute gastritis without bleeding (principal); R11.2 Nausea with vomiting, unspecified; R10.12 Left upper quadrant pain; J45.909 Unspecified asthma, uncomplicated; F32.9 Major depressive disorder, single episode, unspecified; Z90.710 Acquired absence of both cervix and uterus; Z90.89 Acquired absence of other organs; Z98.890 Other specified postprocedural states; Z87.891 Personal history of nicotine dependence; Z88.0 Allergy status to penicillin; Z88.2 Allergy status to sulfonamides; Z88.6 Allergy status to analgesic agent; Z88.5 Allergy status to narcotic agent
CPT/HCPCS: 36415; 74177; 80053; 81001; 81025; 83690; 83735; 85025; 93005; 96361; 96374; 96375; 96376; 99285; J2405; J3010; J7030; Q9967

== ENCOUNTER 2020-11-01 10:53 | Emergency (ER) | payer BC ==
[~2020-11-01] VITALS: Ht 175.3 cm; Wt 80.0 kg
[2020-11-01 12:35] VITALS: BP 112/69
[2020-11-01 13:00] LABS: BILIRUBIN,URINE SMALL (NEG); CLARITY,URINE CLEAR; COLOR,URINE YELLOW; NITRITE,URINE NEGATIVE (NEG); PROTEIN,URINE NEGATIVE (NEG-TRACE)
[2020-11-01] MEDS ORDERED: CYCL10TA2 PO (13:02)
[2020-11-01] MEDS ORDERED: PRED20TA PO (13:02)
--- NOTE | 2020-11-01 13:03 | ED.ADGEN ---
Past Medical History Past Medical History: Asthma, Depression Additional Past Medical Histor: GASTRIC BYPASS Past Surgical History: Cholecystectomy, Colectomy, Splenectomy Additional Past Surgical Histo: gastric bypass Smoking Status: Light Tobacco Smoker Alcohol Use: None Drug Use: None General Adult EDM: Chief Complaint: BACK PAIN OR INJURY HPI: HPI: Patient is a 25 year old female who presents to the emergency department with complaints of right-sided lower back pain that shoots down her right leg with movement and activity for the last week. Patient states that at tingling numb sensation shoots down her right leg with movement. She denies any recent injury, fall, increased activity, or new exercises. Patient denies any saddle anesthesia, loss of bowel/bladder control, dysuria, hematuria, increased urinary frequency, difficulty voiding, abdominal pain, nausea, vomiting, diarrhea, chest pain, shortness of breath. She currently rates pain 8 out of 10 on the pain scale, if she moves the pain shoots to 10. She denies any alleviating factors. Review of Systems: Review of Systems: Complete ROS is negative unless otherwise noted in HPI. Allergies: Allergies: Allergies Coded Allergies Type Severity Reaction Last Updated Verified Penicillins Allergy Severe FACIAL SWELLING, ANGIOEDEMA 08/06/18 Yes Sulfa (Sulfonamide Antibiotics) Allergy Intermediate 08/05/18 Yes acetaminophen Allergy Intermediate 08/05/18 Yes oxycodone Allergy Intermediate 08/05/18 Yes adhesive Adverse Reaction Mild Rash, itching 08/16/18 Yes hydromorphone Adverse Reaction Mild 05/26/19 Yes Physical Exam: PE: See Above Constitutional: Well developed, well nourished, no acute distress, non-toxic appearance. [] HENT: Normocephalic, atraumatic, bilateral external ears normal, nose normal. [] Eyes: PERRLA, EOMI, conjunctiva normal, no discharge. [] Neck: Normal range of motion, no stridor. [] Cardiovascular:Heart rate regular rhythm Lungs & Thorax: Respirations even and unlabored, no retractions, no respiratory distress Back: No bony tenderness, right paraspinal lumbar tenderness to palpation, increased pain with right straight leg lift Skin: Warm, dry, no erythema, no rash. [] Extremities: No cyanosis, ROM intact, no edema. [] Neurologic: Alert and oriented X 3, normal motor, normal sensory, no focal deficits noted. [] Psychologic: Affect normal, judgement normal, mood normal. [] Current Patient Data: Labs: Laboratory Tests Test 11/01/20 12:30 11/01/20 12:45 Urine Collection Type Unknown Urine Color Yellow Urine Clarity Clear Urine pH 7.0 (<5.0-8.0) Urine Specific Cosby 1.025 (1.000-1.030) Urine Protein Negative mg/dL (NEG-TRACE) Urine Glucose (UA) Negative mg/dL (NEG) Urine Ketones (Stick) Negative mg/dL (NEG) Urine Blood Negative (NEG) Urine Nitrite Negative (NEG) Urine Bilirubin Small (NEG) Urine Urobilinogen Dipstick 2.0 mg/dL (0.2 mg/dL) Urine Leukocyte Esterase Small (NEG) Urine RBC Rare /HPF (0-2) Urine WBC 1-4 /HPF (0-4) Urine Squamous Epithelial Cells Mod /LPF Urine Bacteria Few /HPF (0-FEW) Urine Mucus Slight /LPF POC Urine HCG, Qualitative Hcg negative (Negative) Vital Signs: Vital Signs Date Time Temp Pulse Resp B/P (MAP) Pulse Ox O2 Delivery O2 Flow Rate FiO2 11/01/20 12:35 98.2 63 16 112/69 (83) 98 Room Air 98.2 EKG: EKG: [] Heart Score: C/O Chest Pain: No Risk Scores: Score 0 - 3: 2.5% MACE over next 6 weeks - Discharge Home Score 4 - 6: 20.3% MACE over next 6 weeks - Admit for Clinical Observation Score 7 - 10: 72.7% MACE over next 6 weeks - Early Invasive Strategies Radiology/Procedures: Radiology/Procedures: [] Course & Med Decision Making: Course & Med Decision Making Pertinent Labs and Imaging studies reviewed. (See chart for details) [] Dragon Disclaimer: Dragon Disclaimer: This electronic medical record was generated, in whole or in part, using a voice recognition dictation system. Departure Departure Impression: Primary Impression: Right-sided low back pain with sciatica Disposition: HOME / SELF CARE / HOMELESS Condition: STABLE Referrals: OSIRIS AARON MD (PCP) Patient Instructions: Sciatica, [id number] Additional Instructions: Fill the prescription(s) and use as directed. Apply heat or ice for to sore areas as needed for comfort. Activity as tolerated. Follow up with your primary care doctor this week if symptoms persist, return to the ER if symptoms worsen or you develop a fever. Scripts Cyclobenzaprine Hcl (CYCLOBENZAPRINE HCL) 10 Mg Tablet 1 TAB PO TID PRN for MUSCLE PAIN for 10 Days, #30 TAB 0 Refills Prov: ABDIRAHMAN CHO APRN 11/01/20 Prednisone (PREDNISONE) 20 Mg Tablet 1 TAB PO UD for 12 Days, #15 TAB 2 tabs by mouth days 1,2,3 then 1.5 tabs by mouth days 4,5,6 then 1 tab by mouth days 7,8,9 then 0.5 tab by mouth day 10,11,12 Prov: ABDIRAHMAN CHO APRN 11/01/20 Attending Signature Attending Signature I have participated in the care of this patient and I have reviewed and agree with all pertinent clinical information above including history, exam, and recommendations. Problem Qualifiers Primary Impression: Right-sided low back pain with sciatica Chronicity: acute Sciatica laterality: sciatica of right side Qualified Codes: M54.41 - Lumbago with sciatica, right side ABDIRAHMAN CHO APRN Nov 01, 2020 13:03 JOSELUIS CISNEROS DO Nov 02, 2020 10:48
[2020-11-01 13:25] LABS: BACTERIA,URINE FEW /HPF (0-FEW); RBC,URINE RARE /HPF (0-2)
== END 2020-11-01 13:22 | disposition home or self-care (01) ==
LOC: ER 10:53
DX: M54.41 Lumbago with sciatica, right side (principal); R20.2 Paresthesia of skin; J45.909 Unspecified asthma, uncomplicated; F32.9 Major depressive disorder, single episode, unspecified; Z98.890 Other specified postprocedural states; Z90.49 Acquired absence of other specified parts of digestive tract; Z90.89 Acquired absence of other organs; Z88.0 Allergy status to penicillin; Z88.2 Allergy status to sulfonamides; Z88.5 Allergy status to narcotic agent; Z88.8 Allergy status to other drugs, medicaments and biological substances
CPT/HCPCS: 81001; 81025; 87086; 99283